=== PATIENT | male | born 1990 | race Two or more races ===

== ENCOUNTER 2019-05-04 10:45 | Emergency (ER) | payer SELFPAY ==
[2019-05-04] MEDS ORDERED: KETOROLAC TROMETHAMINE 60 MG/2 ML SDV IM ONE (12:04)
[2019-05-04] MEDS ORDERED: ONDANSETRON HCL INJ/PF 4 MG/2 ML SDV IM ONE (12:04)
--- NOTE | 2019-05-04 12:04 | ER Document Report ---
ED Medical Screen (RME) - General Chief Complaint: Flank Pain Stated Complaint: ABDOMINAL PAIN/URINARY PROBLEMS Time Seen by Provider: 05/04/19 11:59 Mode of Arrival: Ambulatory Information source: Patient Notes: 28-year-old male presented to ED for complaint of right flank pain this a.m. He states he is going very small amounts of urine and it is painful when he urinates. He states he has not noticed any blood in his urine. He states he has vomited at least 8 times today. He states he took ibuprofen 200 mg this morning and threw it all up.. He states his pain is throbbing and does not go away at all since he started this morning. He states his pain is a 4/5. I have greeted and performed a rapid initial assessment of this patient. A comprehensive ED assessment and evaluation of the patient, analysis of test results and completion of medical decision making process will be conducted by an additional ED providers. - Related Data Allergies/Adverse Reactions: No Known Allergies Allergy (Unverified 05/04/19 12:01) Physical Exam - Vital signs Vitals: Temp Pulse Resp BP Pulse Ox 98.4 F 69 18 153/89 H 97 05/04/19 11:48 05/04/19 11:48 05/04/19 11:48 05/04/19 11:48 05/04/19 11:48 Course - Vital Signs Vital signs: Temp Pulse Resp BP Pulse Ox 98.4 F 69 18 153/89 H 97 05/04/19 11:48 05/04/19 11:48 05/04/19 11:48 05/04/19 11:48 05/04/19 11:48
[2019-05-04 13:09] LABS: APPEARANCE,URINE SLIGHTLY-CLOUDY; BILIRUBIN,URINE NEGATIVE (NEGATIVE); COLOR,URINE YELLOW; GLUCOSE, URINE NEGATIVE (NEGATIVE); KETONES,URINE NEGATIVE (NEGATIVE); PROTEIN,URINE 30 mg/dL (NEGATIVE); UROBILINOGEN,URINE NEGATIVE mg/dL (<2.0)
[2019-05-04 13:14] LABS: ABSOLUTE EOSINOPHILS # (AUTO) 0.1 10^3/uL (0.0-0.6); ABSOLUTE MONOCYTES (AUTO) 0.6 10^3/uL (0.1-1.4); ABSOLUTE NEUT (AUTO) 8.4 10^3/uL (1.7-8.2); BASOPHILS % (AUTO) 0.5 % (0-2); EOSINOPHILS % (AUTO) 1.1 % (0-6); HEMATOCRIT 45.8 % (37.9-51.0); HEMOGLOBIN 15.9 g/dL (13.5-17.0); LYMPHOCYTES % (AUTO) 10.1 % (13-45); MEAN CORPUSCULAR HEMOGLOBIN 31.3 pg (27.0-33.4); MEAN CORPUSCULAR HGB CONC 34.7 g/dL (32.0-36.0); MEAN CORPUSCULAR VOLUME 90 fl (80-97); MONOCYTES % (AUTO) 6.2 % (3-13); PLATELET COUNT 245 10^3/uL (150-450); RED BLOOD COUNT 5.07 10^6/uL (4.35-5.55); RED CELL DISTRIBUTION WIDTH 12.6 % (11.5-14.0); SEGMENTED NEUTROPHILS % (AUTO) 82.1 % (42-78); TOTAL CELLS COUNTED % (AUTO) 100 %; WHITE BLOOD COUNT 10.2 10^3/uL (4.0-10.5)
--- NOTE | 2019-05-04 13:15 | RADIOLOGY REPORT (SQ) ---
EXAM DESCRIPTION: CT ABD/PELVIS NO ORAL OR IV COMPLETED DATE/TIME: 05/04/2019 12:53 pm REASON FOR STUDY: Right flank pain nausea and vomiting COMPARISON: None. TECHNIQUE: CT scan of the abdomen and pelvis performed without intravenous or oral contrast. Images reviewed with lung, soft tissue, and bone windows. Reconstructed coronal and sagittal MPR images revi ewed. All images stored on PACS. All CT scanners at this facility use dose modulation, iterative reconstruction, and/or weight based d osing when appropriate to reduce radiation dose to as low as reasonably achievable (ALARA). [facility]: Dose Right [facility]: CareDose [facility]: Dose Right [facility]: Teradose 4D [facility]: Smart Pod Inns RADIATION DOSE: CT Rad equipment meets quality standard of care and radiation dose reduction techniq ues were employed. CTDIvol: 15.9 mGy. DLP: 912 mGy-cm.mGy. LIMITATIONS: None. FINDINGS: In the midline urinary bladder, a 2 mm stone is present on axial image 80. This may repre sent a recently passed ureteral calculus. No right or left hydronephrosis or hydroureter. No right or left intrarenal calculi. LOWER CHEST: No significant findings. No nodules or infiltrates. NON-CONTRASTED LIVER, SPLEEN, ADRENALS: Profound fatty infiltration of the liver. Spleen, adrenal gl ands unremarkable. PANCREAS: No masses. No peripancreatic inflammatory changes. GALLBLADDER: No identified stones by CT criteria. No inflammatory changes to suggest cholecystitis. RIGHT KIDNEY AND URETER: No suspicious masses. Assessment limited by lack of IV contrast. No signif icant calcifications. No hydronephrosis or hydroureter. LEFT KIDNEY AND URETER: No suspicious masses. Assessment limited by lack of IV contrast. No signifi cant calcifications. No hydronephrosis or hydroureter. AORTA AND RETROPERITONEUM: No aneurysm. No retroperitoneal masses or adenopathy. BOWEL AND PERITONEAL CAVITY: No obvious masses or inflammatory changes. No free fluid. APPENDIX: Normal. PELVIS, BLADDER, AND ABDOMINAL WALL:2 mm calculus in the midline bladder axial image 80, likely a rec ently passed ureteral stone. No free pelvic fluid. No adenopathy. BONES: No significant findings. OTHER: No other significant finding. IMPRESSION: 2 mm calculus in the bladder, likely a recently passed ureteral stone. No hydronephrosi s. No other urinary calculi. Fatty infiltration of the liver COMMENT: Quality ID # [id number]: Final reports with documentation of one or more dose reduction techniques (e.g., Automated exposure control, adjustment of the mA and/or kV according to patient size, use of iterative reconstruction technique) TECHNICAL DOCUMENTATION: JOB ID: [id number] Screen- All Rights Reserved Reading location - IP/workstation name: [email or web address]
[2019-05-04 13:23] LABS: ALBUMIN 4.8 g/dL (3.5-5.0); ALKALINE PHOSPHATASE 84 U/L (38-126); ANION GAP 13 (5-19); ASPARTATE AMINO TRANSFERASE 44 U/L (17-59); BILIRUBIN,DIRECT 0.2 mg/dL (0.0-0.4); BILIRUBIN,TOTAL 0.7 mg/dL (0.2-1.3); BLOOD UREA NITROGEN 18 mg/dL (7-20); CALCIUM 9.7 mg/dL (8.4-10.2); CARBON DIOXIDE 26 mmol/L (22-30); CHLORIDE 102 mmol/L (98-107); GLUCOSE 120 mg/dL (75-110); POTASSIUM 4.3 mmol/L (3.6-5.0); TOTAL PROTEIN 7.7 g/dL (6.3-8.2)
--- NOTE | 2019-05-04 14:22 | ER Document Report ---
ED General - General Chief Complaint: Flank Pain Stated Complaint: ABDOMINAL PAIN/URINARY PROBLEMS Time Seen by Provider: 05/04/19 11:59 Mode of Arrival: Ambulatory Notes: Patient presents with resolved flank pain, lower left with vomiting. He was sweaty at the time and is now better after 1 round of medicine. No hematuria no fever. CT has been done as have labs prior to my evaluation has been medicated and when I see him in the hallway he feels perfectly well. CT shows passed stone. UA does not show infection the patient looks well. He stable for discharge will give Motrin Zofran just in case but I discussed stone passage symptoms. He does not need to follow-up with urology at this time. I have discussed with the patient there likely diagnosis, aftercare plan, follow-up plans and my usual and customary return precautions. They verbalized understanding of this. TRAVEL OUTSIDE OF THE [place] IN LAST 30 DAYS: No - Related Data Allergies/Adverse Reactions: No Known Allergies Allergy (Verified 05/04/19 12:05) Home Medications: albuterol inh prn Past Medical History - General Information source: Patient - Social History Smoking Status: Former Smoker Chew tobacco use (# tins/day): No Frequency of alcohol use: Occasional Drug Abuse: None Family History: None Patient has suicidal ideation: No Patient has homicidal ideation: No Review of Systems - Review of Systems Notes: REVIEW OF SYSTEMS GEN: Denies fever, chills, weight loss ENT: Denies sore throat, nasal discharge, ear pain EYES: Denies blurry vision, eye pain, discharge CV: Denies chest pain, palpitations, edema RESP: Denies cough, shortness of breath, wheezing GI: Vomiting a MSK: Flank pain SKIN: Denies rash, skin lesions LYMPH: Denies swollen glands/lymph nodes NEURO: Denies headache, focal weakness or numbness, dizziness PSYCH: Denies depression, suicidal or homicidal ideation PHYSICAL EXAMINATION General: No acute distress, well-nourished Head: Atraumatic, normocephalic ENT: Mouth normal, oropharynx moist, no exudates or tonsillar enlargement Eyes: Conjunctiva normal, pupils equal, lids normal Neck: No JVD, supple, no guarding CVS: Normal rate, regular rhythm, no murmurs Resp: No resp distress, equal and normal breath sounds bilaterally GI: Nondistended, soft, no tenderness to palpation, no rebound or guarding Ext: No deformities, no edema, normal range of motion in upper and lower ext Back: No CVA or midline TTP Skin: No rash, warm Lymphatic: No lymphadeopathy noted Neuro: Awake, alert. Face symmetric. GCS 15. Physical Exam - Vital signs Vitals: Temp Pulse Resp BP Pulse Ox 98.4 F 69 18 153/89 H 97 05/04/19 11:48 05/04/19 11:48 05/04/19 11:48 05/04/19 11:48 05/04/19 11:48 Course - Re-evaluation Re-evalutation: 05/04/19 15:11 Patient presents with resolved flank pain, lower left with vomiting. He was sweaty at the time and is now better after 1 round of medicine. No hematuria no fever. CT has been done as have labs prior to my evaluation has been medicated and when I see him in the hallway he feels perfectly well. CT shows passed stone. UA does not show infection the patient looks well. He stable for discharge will give Motrin Zofran just in case but I discussed stone passage symptoms. He does not need to follow-up with urology at this time. I have discussed with the patient there likely diagnosis, aftercare plan, follow-up plans and my usual and customary return precautions. They verbalized understanding of this. - Vital Signs Vital signs: Temp Pulse Resp BP Pulse Ox 98.2 F 73 17 145/76 H 97 05/04/19 14:29 05/04/19 14:29 05/04/19 14:29 05/04/19 14:29 05/04/19 14:29 - Laboratory Result Diagrams: 05/04/19 12:40 05/04/19 12:40 Laboratory results interpreted by me: 05/04/19 05/04/19 05/04/19 12:40 12:40 12:40 Lymph % (Auto) 10.1 L Absolute Neuts (auto) 8.4 H Seg Neutrophils % 82.1 H Glucose 120 H Urine Protein 30 H Urine Blood SMALL H - Diagnostic Test Radiology reviewed: Image reviewed, Reports reviewed Discharge - Discharge Clinical Impression: Renal colic Condition: Good Disposition: HOME, SELF-CARE Instructions: Kidney Stone ([facility]), Toradol Injection ([facility]) Prescriptions: Ibuprofen [Motrin 600 Mg Tablet] 600 mg PO TID #15 tablet Ondansetron [Zofran Odt 4 mg Tablet] 1 - 2 tab PO Q4H PRN #15 tab.rapdis PRN Reason: For Nausea/Vomiting
[2019-05-04 14:35] VITALS: BP 145/76
== END 2019-05-04 14:31 | disposition home or self-care (01) ==
LOC: ER 10:45
DX: N23 Unspecified renal colic (principal); R11.10 Vomiting, unspecified
CPT/HCPCS: 36415; 85025; 80053; 81001; 74176; J1885; J2405